=== PATIENT | female | born 1950 | race Caucasian/White ===

== ENCOUNTER → 2021-11-23 | Day surgery (SDC) | payer MEDICARE ==
[~2021-11-23] VITALS: Ht 172.7 cm; Wt 77.1 kg
[~2021-11-23] MED LIST: ASPIRIN EC325 MG PO; ASPIRIN EC81 MG PO; BACITRACIN15 GM TOP; BENICAR40 MG PO; GARLIC OIL1000 MG PO; IRON OTC PO; JANUVIA50 MG PO; MAG-OXIDE 400M400 MG PO; METFORMIN HCL500 MG PO; ONDANSETRON ODT4 MG PO; OXYCODONE-ACET1 EAC1 PO; PERCOCET 5-3251 EACH PO; POTASSIUM PO; TECFIDERA240 MG PO; VITAMIN D250 MCG PO
[2021-11-23 09:20] LABS: HCT 37.2 % (37.0-47.0); MCH 29.3 pg (25.0-31.0); MCHC 32.3 g/dL (32.0-36.0); MPV 9.9 fL (6.0-9.5); RBC 4.09 M/uL (4.20-5.40); RDW 15.2 % (11.5-14.0); WBC 8.6 K/uL (4.0-10.5)
[2021-11-23 10:25] LABS: ALBUMIN 3.9 g/dL (3.4-5.0); BILIRUBIN - TOTAL 0.3 mg/dL (0.2-1.0); BUN/CREAT RATIO (CALC) 22.7 RATIO; CREATININE 1.72 mg/dL (0.51-0.95); GLOBULIN (CALCULATION) 3.4 g/dL; POTASSIUM 4.7 mmol/L (3.5-5.1); TOTAL PROTEIN 7.3 g/dL (6.4-8.2)
== END | disposition home or self-care (01) ==
LOC: FAS 08:20
PROVIDERS: Surgery
DX: R19.5 Other fecal abnormalities (principal); K57.30 Diverticulosis of large intestine without perforation or abscess without bleeding; I10 Essential (primary) hypertension; E11.9 Type 2 diabetes mellitus without complications; Z87.891 Personal history of nicotine dependence; Z79.84 Long term (current) use of oral hypoglycemic drugs; Z79.899 Other long term (current) drug therapy
CPT/HCPCS: 36415; 80053; J1610; J2704; J7120